=== PATIENT | female | born 1935 | race Caucasian/White ===

== ENCOUNTER 2021-12-09 09:39 | Emergency (ER) | payer MEDICARE, OTHER ==
[2021-12-09 10:00] LABS: BASOPHIL 0.3 % (0-2); EOSINOPHIL 2.4 % (0-7); HCT 41.5 % (37.0-47.0); HGB 13.7 g/dl (12.5-16.0); LYMPHOCYTE 12.3 % (15-48); MCH 31.6 pg (25.0-31.0); MCV 95.6 fL (78.0-100.0); MONOCYTE 6.8 % (0-12); MPV 11.2 fL (6.0-9.5); NEUTROPHIL 77.8 % (41-80); NRBC 0; PLT 141 K/uL (150-400); RBC 4.34 M/uL (4.20-5.40); RDW 13.3 % (11.5-14.0); WBC 7.1 K/uL (4.0-10.5)
[2021-12-09 10:23] LABS: ALBUMIN 3.2 g/dL (3.4-5.0); BILIRUBIN - TOTAL 0.5 mg/dL (0.2-1.0); BUN/CREAT RATIO (CALC) 25.8 RATIO; CREATININE 0.97 mg/dL (0.51-0.95); GLOBULIN (CALCULATION) 3.4 g/dL; POTASSIUM 4.1 mmol/L (3.5-5.1); TOTAL PROTEIN 6.6 g/dL (6.4-8.2)
[2021-12-09] MEDS ORDERED: ONDANSETRON ODT4 MG PO (11:02)
== END 2021-12-09 11:02 | disposition home or self-care (01) ==
LOC: FER 09:39
PROVIDERS: Emergency Medicine
DX: I10 Essential (primary) hypertension (principal); Z88.0 Allergy status to penicillin
CPT/HCPCS: 36415; 80053; 84484; 85025; 93005